=== PATIENT | male | born 1965 | race Caucasian/White ===

== ENCOUNTER 2020-02-26 13:12 | Day surgery (SDC) | payer OTHER ==
[2020-02-26] MEDS ORDERED: Lactated Ringers 1,000 ML IV ONE (13:13)
[2020-02-26] MEDS ORDERED: Glycopyrrolate 0.2 MG/ML 5 ML MDV IV ONE (13:13)
[2020-02-26] MEDS ORDERED: Ondansetron 4 MG/2 ML SDV IVPUSH ONE (13:13)
[2020-02-26] MEDS ORDERED: Midazolam 1 MG/ML 2 ML SDV IV ONE (13:13)
[2020-02-26] MEDS ORDERED: Rocuronium 100 MG/10 ML MDV IV ONE (13:13)
[2020-02-26] MEDS ORDERED: Dexamethasone 4 MG/ML 5 ML MDV IVPUSH ONE (13:13)
[2020-02-26] MEDS ORDERED: Acetaminophen 1,000 MG/100 ML Infusion Bottle Premix IV ONE (13:13)
[2020-02-26] MEDS ORDERED: Neostigmine Methylsulfate 10 MG/10 ML MDV IVPUSH ONE (13:13)
[2020-02-26] MEDS ORDERED: Ketorolac 30 MG/ML SDV IVPUSH ONE (13:13)
[2020-02-26] MEDS ORDERED: Succinylcholine 200 MG/10 ML MDV IV ONE (13:13)
[2020-02-26] MEDS ORDERED: fentaNYL 100 MCG/2 ML SDV IV ONE (13:13)
[2020-02-26] MEDS ORDERED: Lidocaine 2% 5 ML SDV INJECT ONE (13:13)
[2020-02-26] MEDS ORDERED: Propofol 200 MG/20 ML SDV IV ONE (13:13)
[2020-02-26] MEDS ORDERED: Sodium Chloride 0.9% 10 ML Syringe FLUSH PRN (13:32)
[2020-02-26] MEDS ORDERED: Piperacillin/Tazobactam 3.375 GM in Sodium Chloride 0.9% 50 ML IV ONE (13:45)
[2020-02-26] MEDS ORDERED: Lactated Ringers 1,000 ML IV SCH (13:45)
[2020-02-26] MEDS ORDERED: Morphine 2 MG/ML SYRINGE IVPUSH PRN (16:22)
[2020-02-26] MEDS ORDERED: Acetaminophen/HYDROcodone 325-5 MG Tab PO PRN ×2 (16:22)
[2020-02-26] MEDS ORDERED: Ondansetron 4 MG/2 ML SDV IVPUSH PRN (16:22)
--- NOTE | 2020-02-26 16:22 | PCM.OPNOTE ---
- General Post-Op/Procedure Note Date of Surgery/Procedure: 02/26/20 Operative Procedure(s): Laparoscopic resection of infarcted appendicies epiploica and appendectomy Findings: Localized segment of infarcted appendices epiploica along the ascending colon with normal appearing adjacent bowel Normal appearing appendix Pre Op Diagnosis: Acute appendicitis Post-Op Diagnosis: Infarcted appendices epiploica Anesthesia Technique: General ET Tube Primary Surgeon: Dexter Reyna Pathology: Appendices Epiploica Appendix EBL in mLs: 25 Complications: None Condition: Good
[2020-02-26] MEDS ORDERED: Albuterol/Ipratropium 3.0-0.5 MG/3 ML Neb Soln NEB PRN (16:27)
[2020-02-26] MEDS: Lactated Ringers 1,000 ML IV SCH (17:10)
[2020-02-26] MEDS: Piperacillin/Tazobactam 3.375 GM in Sodium Chloride 0.9% 50 ML IV SCH (20:03)
--- NOTE | 2020-02-27 00:25 | OR ---
DATE OF OPERATION: 02/26/2020 SURGEON: Dexter Reyna MD PREOPERATIVE DIAGNOSIS: Acute appendicitis. 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 OPERATION PERFORMED: Laparoscopic resection of appendices epiploica and appendectomy. INDICATIONS FOR SURGERY: This 54-year-old male presented to the outpatient clinic with a 2-day history of progressive pain in the right lower quadrant. CT scan was obtained which was interpreted as showing findings consistent with acute appendicitis. FINDINGS: Along the midportion of the ascending colon the patient had a segment of appendices epiploica which was hyperemic, inflamed, and appeared consistent with history of infarction. The attachments of these appendices epiploica to the ascending colon as well as the ascending colon itself appeared normal in this region. Other intraabdominal organs appeared unremarkable as viewed laparoscopically. The patient's appendix did not appear to be grossly inflamed nor did it appear to have a thickened wall. The cecum adjacent to the appendix also appeared normal. PROCEDURE IN DETAIL: The patient was taken to the operating room. He was given general endotracheal anesthesia and the abdomen was sterilely prepped and draped. A supraumbilical stab wound incision was made. Careful dissection proceeded down onto the underlying fascia and gently the fascia was opened at this level and a 5 mm trocar bluntly inserted. Upon insertion of the 5 mm camera, the peritoneal cavity was viewed and pneumoperitoneum to a pressure of 15 mmHg was achieved with carbon dioxide. Careful examination showed no sign of any complication from trocar insertion. Under direct visualization, a 12 mm trocar was placed in the suprapubic midline and another 5 mm trocar was placed in the right lower quadrant. All trocar sites were infiltrated with Marcaine prior to insertion. Intra-abdominal inspection was carried out and attention was 1st turned to the abnormal-appearing fatty tissue adjacent to the midportion of the cecum. This tissue was identified and careful blunt dissection was then used to free normal-appearing omentum and appendices epiploica from the acutely inflamed segment. This was cleared so that the full extent of the infarcted area was viewed and its area of attachment to the region of the ascending colon was also carefully viewed. There did not appear to be any acute colonic inflammation in this area or other abnormalities. A series of Endo SURENDRA staplers with 2.5 mm staple length was then used to fire across the base of the appendices epiploica it from the cecum and adjacent omentum and completely freeing it. Great care was used to avoid any injury to the bowel during this process. The abnormal tissue was then placed into an Endo retrieval bag and extracted through the large trocar site. Reinspection of the operative region showed no sign of any complication. Attention was then turned to the appendix, it was identified and exposed. Some fibrous adhesions to the retroperitoneum were sharply divided and the base of the appendix including its junction with the cecum were clearly identified. With the history of possible abnormality noted in the appendix on CT scan, it was felt prudent to remove the appendix, even though it did not appear to be acutely inflamed at this time. A small window was made in the mesoappendix adjacent to the cecum and an Endo SURENDRA stapler with 2.5 mm staple length was fired across the appendiceal-cecal junction. The cecal staple line was examined and found to appear to be intact and of good quality. An additional firing of the Endo SURENDRA was carried across the mesoappendix completely freeing the appendix. It was placed into another Endo retrieval bag and removed from the abdominal cavity through the largest trocar site. Copious irrigation and careful examination of the operative regions were performed. No sign of any bleeding or other complication was noted. The pneumoperitoneum was then evacuated and the trocars were removed under direct visualization. The fascia of the suprapubic trocar site was closed with 0 Vicryl suture. Wounds were irrigated with Betadine and saline solution. Skin incisions approximated with interrupted 4-0 Vicryl in a subcuticular stitch. Steri-Strips and benzoin were applied. Antibiotic ointment and sterile dressings were placed. The patient was awakened, extubated, and taken from the operating room in satisfactory condition. ESTIMATED BLOOD LOSS: 25 mL. COMPLICATIONS: None. PROGNOSIS: Good. /[id number] RINA/BRIDGET
[2020-02-27] MEDS: Piperacillin/Tazobactam 3.375 GM in Sodium Chloride 0.9% 50 ML IV SCH (02:45)
[2020-02-27] MEDS: Lactated Ringers 1,000 ML IV SCH (02:50)
--- NOTE | 2020-02-27 07:49 | PCM.SURGPN ---
- General Info Date of Service: 02/27/20 Date of Surgery/Procedure: 02/26/20 POD#: 1 Post-Op Diagnosis: Infarcted Appendices Epiploica Functional Status: Reports: Pain Controlled - Review of Systems General: Denies: Fever, Chills Pulmonary: Reports: No Symptoms Cardiovascular: Denies: Chest Pain Gastrointestinal: Denies: Nausea, Vomiting Genitourinary: Reports: No Symptoms Musculoskeletal: Denies: Leg Pain - Patient Data Vitals - Most Recent: Last Vital Signs Temp 97.9 F 02/27/20 04:00 Pulse 73 02/27/20 04:00 Resp 15 02/27/20 04:00 BP 111/70 02/27/20 04:00 Pulse Ox 94 L 02/27/20 04:00 Weight - Most Recent: 260 lb I&O - Last 24 Hours: Intake & Output 02/26/20 02/27/20 02/27/20 22:59 06:59 14:59 Intake Total 476 Output Total 500 Balance -24 Lab Results Last 24 Hrs: Laboratory Results - last 24 hr 02/26/20 Range/Units 13:15 SARS Virus RNA (PCR) Negative (NEGATIVE) Med Orders - Current: Current Medications Hydrocodone Bitart/Acetaminophen ([place] 325-5 Mg) 1 tab PO Q4H PRN PRN Reason: Pain (mild 1-3) Hydrocodone Bitart/Acetaminophen ([place] 325-5 Mg) 2 tab PO Q4H PRN PRN Reason: Pain (moderate 4-6) Albuterol/Ipratropium (Duoneb 3.0-0.5 Mg/3 Ml) 3 ml NEB Q6H PRN PRN Reason: Dyspnea Last Admin: 02/26/20 16:52 Dose: 3 ml Documented by: Lactated Ringer's (Ringers, Lactated) 1,000 mls @ 100 mls/hr IV ASDIRECTED RAMIRO Last Admin: 02/27/20 02:50 Dose: 100 mls/hr Documented by: Morphine Sulfate (Morphine) 2 mg IVPUSH Q1H PRN PRN Reason: Pain (severe 7-10) Ondansetron HCl (Zofran) 4 mg IVPUSH Q6H PRN PRN Reason: Nausea/Vomiting Sodium Chloride (Saline Flush) 10 ml FLUSH ASDIRECTED PRN PRN Reason: Keep Vein Open Discontinued Medications Lactated Ringer's (Ringers, Lactated) 1,000 mls @ 125 mls/hr IV ASDIRECTED [facility] Last Admin: 02/26/20 14:10 Dose: 125 mls/hr Documented by: Piperacillin Sod/Tazobactam (Sod 3.375 gm/ Sodium Chloride) 50 mls @ 100 mls/hr IV ONETIME ONE Stop: 02/26/20 14:14 Last Admin: 02/26/20 14:23 Dose: 100 mls/hr Documented by: Piperacillin Sod/Tazobactam (Sod 3.375 gm/ Sodium Chloride) 50 mls @ 100 mls/hr IV Q6H [facility] Last Admin: 02/27/20 02:45 Dose: 100 mls/hr Documented by: - Exam Wound/Incisions: Healing Well, Other (small amount of bleeding last night but dry this am) General: Alert, Oriented Lungs: Normal Respiratory Effort GI/Abdominal Exam: Soft, No Distention Extremities: Non-Tender Skin: Warm, Dry Sepsis Event Note - Evaluation Sepsis Screening Result: No Definite Risk - Focused Exam Vital Signs: Vital Signs Temp Pulse Resp BP Pulse Ox 02/27/20 04:00 97.9 F 73 15 111/70 94 L 02/26/20 22:30 97.8 F 99 17 132/88 95 02/26/20 21:58 98 19 138/86 95 02/26/20 20:30 91 16 119/73 99 Date Exam was Performed: 02/27/20 Time Exam was Performed: 07:46 - Problem List Review Problem List Initiated/Reviewed/Updated: Yes - My Orders Last 24 Hours: Active Orders 24 hr Category Date Time Status Patient Status [ADT] Routine ADT 02/26/20 13:31 Active Patient Status [ADT] Routine ADT 02/26/20 16:22 Active Ambulate [RC] ASDIRECTED Care 02/26/20 16:22 Active Antiembolic Devices [RC] .Routine Care 02/26/20 16:26 Active EKG Documentation Completion [RC] ASDIRECTED Care 02/26/20 13:16 Active Intake and Output [RC] 06,14,22 Care 02/26/20 16:23 Active Oxygen Therapy [RC] PRN Care 02/26/20 16:22 Active Patient to Empty Bladder [RC] ASDIRECTED Care 02/26/20 13:32 Active RT Aerosol Therapy [RC] ASDIRECTED Care 02/26/20 16:28 Active RT Incentive Spirometry [RC] Q1HWA Care 02/26/20 16:22 Active Ready for Discharge [RC] PER UNIT ROUTINE Care 02/27/20 07:45 Ordered VTE/DVT Education [RC] Click to Edit Care 02/26/20 16:26 Active Verify Patient Consent Obtain [RC] ASDIRECTED Care 02/26/20 13:32 Active Vital Signs [RC] PER UNIT ROUTINE Care 02/26/20 16:22 Active Clear Liquid Diet [DIET] Diet 02/26/20 Dinner Ordered Acetaminophen/HYDROcodone [[place] 325-5 MG] Med 02/26/20 16:22 Active 1 tab PO Q4H PRN Acetaminophen/HYDROcodone [[place] 325-5 MG] Med 02/26/20 16:22 Active 2 tab PO Q4H PRN Albuterol/Ipratropium [DuoNeb 3.0-0.5 MG/3 ML] Med 02/26/20 16:27 Active 3 ml NEB Q6H PRN Lactated Ringers [Ringers, Lactated] 1,000 ml Med 02/26/20 16:30 Active IV ASDIRECTED Morphine Sulfate [Morphine] Med 02/26/20 16:22 Active 2 mg IVPUSH Q1H PRN Ondansetron [Zofran] Med 02/26/20 16:22 Active 4 mg IVPUSH Q6H PRN Sodium Chloride 0.9% [Saline Flush] Med 02/26/20 13:32 Active 10 ml FLUSH ASDIRECTED PRN DVT/VTE Prophylaxis Reflex [OM.PC] Per Unit Routine Oth 02/26/20 16:26 Ordered Peripheral IV Insertion Adult [OM.PC] Routine Oth 02/26/20 13:32 Ordered Sequential Compression Device [OM.PC] Routine Oth 02/26/20 13:32 Ordered Sequential Compression Device [OM.PC] Routine Oth 02/26/20 16:22 Ordered Resuscitation Status Routine Resus Stat 02/26/20 13:32 Ordered EKG 12 Lead [EK] Stat Ther 02/26/20 13:15 Ordered Medication Orders Hydrocodone Bitart/Acetaminophen ([place] 325-5 Mg) 1 tab PO Q4H PRN PRN Reason: Pain (mild 1-3) Hydrocodone Bitart/Acetaminophen ([place] 325-5 Mg) 2 tab PO Q4H PRN PRN Reason: Pain (moderate 4-6) Albuterol/Ipratropium (Duoneb 3.0-0.5 Mg/3 Ml) 3 ml NEB Q6H PRN PRN Reason: Dyspnea Last Admin: 02/26/20 16:52 Dose: 3 ml Documented by: GUTIERREZ Lactated Ringer's (Ringers, Lactated) 1,000 mls @ 100 mls/hr IV ASDIRECTED RAMIRO Last Admin: 02/27/20 02:50 Dose: 100 mls/hr Documented by: Infusion: 02/27/20 02:50 Dose: 100 mls/hr Documented by: Admin: 02/26/20 17:10 Dose: 100 mls/hr Documented by: GUTIERREZ Morphine Sulfate (Morphine) 2 mg IVPUSH Q1H PRN PRN Reason: Pain (severe 7-10) Ondansetron HCl (Zofran) 4 mg IVPUSH Q6H PRN PRN Reason: Nausea/Vomiting Sodium Chloride (Saline Flush) 10 ml FLUSH ASDIRECTED PRN PRN Reason: Keep Vein Open - Assessment Assessment (Free Text/Narrative):: POD#1 Resection of appendices epiploica and appendectomy Dong well - Plan Plan (Free Text/Narrative):: Discharge RTC 1 week No heavy lifting for 3 weeks will use OTC medication for pain
== END 2020-02-27 08:28 | disposition home or self-care (01) ==
LOC: FB.SDS 13:12 → FB.MS 17:15 → FB.SDS 02-27 08:28
PROVIDERS: ATTEND Surgery
DX: K35.80 Unspecified acute appendicitis (principal); K55.049 Acute infarction of large intestine, extent unspecified; Z11.59 Encounter for screening for other viral diseases; Z87.891 Personal history of nicotine dependence
CPT/HCPCS: 44970; 87635; 88304; 93005; 94150; A9270; J0131; J0330; J1100; J1885; J2001; J2250; J2405; J2543; J2704; J2710; J3010; J3490; J7050; J7120; J7620-GY; U0002

== ENCOUNTER 2023-07-15 12:05 | Emergency (ER) | payer BC ==
[2023-07-15 12:36] LABS: HEMATOCRIT 46.4 % (38.3-50.1); HEMOGLOBIN 15.9 g/dL (12.9-17.7); MEAN CORPUSCULAR HEMOGLOBIN 31.8 pg (27.0-33.3); MEAN CORPUSCULAR HGB CONC 34.2 g/dL (28.7-35.3); MEAN PLATELET VOLUME 8.4 fL (6.7-11.0); PLATELET COUNT,PLT 156 x10(3)uL (117-477); RED BLOOD CELL COUNT 4.99 x10(6)uL (3.90-5.90); RED CELL DISTRIBUTION WIDTH 13.2 % (12.4-15.0); WHITE BLOOD CELL COUNT,WBC 6.6 x10-3/uL (3.2-10.1)
[2023-07-15 12:38] LABS: BLOOD UREA NITROGEN,BUN 13 mg/dL (7-18); BUN/CREATININE RATIO 16.3 (9-20); CALCIUM 9.1 mg/dL (8.6-10.2); CARBON DIOXIDE,CO2 28 mmol/L (21-32); CHLORIDE,CL 105 mmol/L (100-110); CREATININE 0.8 mg/dL (0.70-1.30); EST CRCL DRUG DOSING (CG) 108.51 mL/min; ESTIMATED GFR 103 mL/min (>60); GLUCOSE RANDOM 95 mg/dL (80-116); POTASSIUM,K 4.3 mmol/L (3.5-5.3); SODIUM,NA 140 mmol/L (135-145)
[2023-07-15 12:44] LABS: A/G RATIO 0.9; ALANINE AMINOTRANSFERASE,ALT 69 U/L (12-36); ALBUMIN 3.6 g/dL (3.5-5.2); ALKALINE PHOSPHATASE 76 IU/L (56-112); ASPARTATE AMNIOTRANSFERASE,AST 33 IU/L (5-25); BILIRUBIN TOTAL 0.5 mg/dL (0.1-1.3); PROTEIN TOTAL,TP 7.8 g/dL (6.0-8.0)
[2023-07-15 13:00] LABS: BAND PERCENT MAN 1 % (0-6); EOSINOPHILS PERCENT MAN 10 % (0-5); LYMPHOCYTES PERCENT MAN 33 % (13-37); MONOCYTES PERCENT MAN 7 % (4-12); SEG NEUTROPHILS PERCENT MAN 49 % (46-82)
== END 2023-07-15 13:46 | disposition home or self-care (01) ==
LOC: FB.ED 12:05
DX: U07.1 COVID-19 (principal); R09.1 Pleurisy; Z86.16 Personal history of COVID-19; Z87.891 Personal history of nicotine dependence
CPT/HCPCS: 36415; 71045; 80053; 85025; 99284